=== PATIENT | male | born 1960 | race Caucasian/White ===

== ENCOUNTER 2016-12-14 13:02 | Day surgery (SDC) | payer OTHER ==
[~2016-12-14 13:02] MED LIST: Z.0.NO CURRENT MEDS
[2016-12-14 13:15] VITALS: BP 128/82; PULSE 75; RESP 20; TEMP 98.1; O2SAT 96
[2016-12-14] MEDS ORDERED: GLYB5TAB3 PO (13:22)
[2016-12-14] MEDS ORDERED: PSEU240T (13:22)
[2016-12-14] MEDS ORDERED: METF1000 PO (13:22)
[2016-12-14] MEDS ORDERED: ELID1CRE (13:22)
[2016-12-14] MEDS ORDERED: ROSU10 PO (13:22)
[2016-12-14 15:50] VITALS: BP 122/69; PULSE 64; RESP 20; TEMP 98.3; O2SAT 98
--- NOTE | 2016-12-14 18:19 | PD.RAD ---
Radiology Post PICC Prog Note Pre Procedure Diagnosis: (1) Otitis Post Procedure Diagnosis: (1) Otitis Procedure: Right PICC line placement Procedure Date: Dec 14, 2016 Supervising Radiologist Cr Sherman Proceduralist/Assist: Krystal White RT(R)() Device Side: Right Wol[place]: 4 single lumen cm: 45 Catheter: Power PICC Plan of Activity Patient to Unit: ROPU Patient Condition: Good PICC line can be used immediately Cr Sherman MD Dec 14, 2016 18:19
[2016-12-14] MEDS ORDERED: SODIUM CHLORIDE 0.9% FLUSH 10 ML FLUSH IVF PRN ×2 (18:30)
[2016-12-15] MEDS ORDERED: SODIUM CHLORIDE 0.9% FLUSH 10 ML FLUSH IVF SCH (09:00)
--- NOTE | 2017-01-10 09:31 | RADRPT ---
EXAM DATE/TIME: 12/14/2016 15:44 [place] COMPARISON: No previous studies available for comparison. INDICATIONS : Patient with a history of exudative otitis media and sinus infection. MEDICAL HISTORY : Acute exudative otitis media Acute infection of sinus Blurred vision Diabetes Hyperlipidemia Psoriasis Hernia SURGICAL HISTORY : Hernia repair ENCOUNTER: Initial ACUITY: 1 week PAIN SCORE: 0/10 FLUORO TIME: 0.76 minutes IMAGE SERIES: 1 ACCESS: Right basilic vein DEVICE(S): 1.) 4 [place] single lumen 45 cm Xcela Power PICC PROCEDURE : 1. Ultrasound guidance for venous catheterization. 2. Fluoroscopic guidance. 3. Ultrasound & fluoroscopic guided central venous Power PICC line placement. The risks, benefits and alternatives to the procedure were explained and verbal and written consent w as obtained. The site was prepped in sterile fashion. Full sterile technique was used, including ca p, mask, sterile gloves and gown and a large sterile sheet. Hand hygiene and 2% chlorhexidine prep w as utilized per protocol for cutaneous antisepsis with appropriate dry time for site. Sterile gel a nd sterile probe cover were utilized for ultrasound guidance. The skin and subcutaneous tissues wer e infiltrated with local anesthetic solution. Under direct ultrasound guidance, a suitable vein was accessed and a measuring guidewire was introduc ed and positioned in the central venous system. The ultrasound images depicting access guidance were saved and stored to PACS for permanent record. A Power Injectable PICC line was cut to prescribed length and introduced, positioned with tip at the cavoatrial junction level. The line was flushed and secured per protocol. CONCLUSION: 1. Uncomplicated central venous Power PICC line placement. 2. The PICC line can be used immediately. Cr Sherman MD on January 10, 2017 at 9:28 Board Certified Radiologist. This report was verified electronically.
== END 2016-12-14 16:05 | disposition home or self-care (01) ==
LOC: HROP 13:02 → HRIP 13:03 → HROP 16:05
DX: H66.009 Acute suppurative otitis media without spontaneous rupture of ear drum, unspecified ear (principal)
CPT/HCPCS: 36569; 76937; 77001; C1751; J1642